=== PATIENT | female | born 2000 | race Caucasian/White ===

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

== ENCOUNTER → 2020-10-23 10:21 | Outpatient (CLI) | payer OTHER, SELFPAY ==
[2020-10-23 12:30] LABS: HCG,Quantitative 14047 mIU/ml (0-5.42)
== END ==
PROVIDERS: Visit Provider Obstetrics & Gynecology
DX: Z32.00 Encounter for pregnancy test, result unknown (principal)
CPT/HCPCS: 36415; 84702

== ENCOUNTER → 2020-10-30 15:13 | Outpatient (CLI) | payer OTHER, SELFPAY ==
--- NOTE | 2020-10-30 15:20 | US_ITS ---
PROCEDURE: US OB >= 14 WEEKS FETUS CLINICAL INDICATION: US OB Dates COMPARISON: No exams were available for comparison FINDINGS: There is a single live fetus present which is in breech presentation. Cervix is closed and measures 3 cm. The placenta is anterior and grade 1. heart body motion noted. This does not constitute a complete Ob anatomy exam. Measurements: Average ultrasound age 17weeks 5days. Gestational Age 17weeks 5days Estimated due date by ultrasound age 0704/04/2021. Estimated weight 211g BPD = 17weeks 4days OFD = HC = 17weeks 3days AC = 18weeks FL = 17weeks 6days Growth Percentile= 10Percent% Heart Rate = 160bpm Cerebellum = 18weeks 1day Humerus = 17weeks 6days HC/AC is 1.13 CI is 0.75 FL/BPD is 0.68 FL/AC is 0.21 IMPRESSION: Live IUP at 17 weeks 5 days. Estimated due date by Ultrasound is 04/04/2021 Dictated by: Braden Narvaez MD 10/31/2020 13:41 Braden Narvaez MD in [facility] 10/31/2020 13:41
== END ==
PROVIDERS: Visit Provider Obstetrics & Gynecology
DX: O26.841 Uterine size-date discrepancy, first trimester (principal)
CPT/HCPCS: 76805

== ENCOUNTER → 2021-02-08 10:07 | Outpatient (CLI) | payer OTHER, SELFPAY ==
[2021-02-08 10:38] LABS: Basophils % 0.2 % (0.1-2.0); Eosinophils # 0.1 K/mm3 (0.0-0.4); Hematocrit 31.6 % (37.0-47.0); Hemoglobin 10.2 g/dL (12.2-16.2); Lymphocytes # 2.1 K/mm3 (0.7-4.5); Lymphocytes % 21.6 % (10-50); Mean Corpuscular HGB Conc 32.4 g/dL (31.8-35.4); Mean Corpuscular Hemoglobin 25.6 pg (27.0-31.2); Mean Platelet Volume 8.7 fl (7.4-10.4); Monocytes # 0.5 K/mm3 (0.1-1.0); Monocytes % 4.9 % (1.7-9.3); Neutrophils # 7.1 K/mm3 (1.8-7.8); Neutrophils % 72.4 % (37.0-80.0); Platelet Count 288 K/mm3 (142-424); White Blood Count 9.8 K/mm3 (4.5-13.0)
[2021-02-09 08:14] LABS: HIV Screen 4th Generation wRfx Non Reactive (Non Reactive)
[2021-02-09 12:30] LABS: Hepatitis B Surface Antigen Negative (Negative); Hepatitis C Antibody <0.1 s/co ratio (0.0-0.9); Rapid Plasma Reagin Ab Titer Non Reactive (NonRea<1:1); Rubella Antibodies, IgG 1.11 index (Immune >0.99)
[2021-02-12 04:14] LABS: Neisseria gonorrhoeae, NAA Negative (Negative)
== END ==
PROVIDERS: Visit Provider Obstetrics & Gynecology
DX: Z34.90 Encounter for supervision of normal pregnancy, unspecified, unspecified trimester (principal)
CPT/HCPCS: 36415; 85025; 86592; 86703; 86762; 86850; 87340; 87380; 87491; 87591; G0432

== ENCOUNTER → 2021-02-12 13:05 | Outpatient (CLI) | payer OTHER, SELFPAY ==
--- NOTE | 2021-02-12 13:05 | US_ITS ---
PROCEDURE: US OB >= 14 WEEKS FETUS CLINICAL INDICATION: OB complete Anatomy exam COMPARISON: US US OB >= 14 WEEKS FETUS from 10/30/2020 FINDINGS: There is a single live fetus which is in cephalic presentation. Anatomic evaluation of the fetus is somewhat limited due to advanced gestational age. The placenta is anterior and grade 1. No obvious previa. The cervix is closed measures 3 cm. The SCOTTIE is normal at 12 cm. Complete survey performed and was unremarkable on the submitted images as in PACS. No discrete anomalies identified on survey imaging by technologist. Active fetus. Three-vessel cord with satisfactory umbilical cord insertion. 4- chamber heart noted. Survey of brain & ventricles Unremarkable. Face and neck survey unremarkable. Diaphragm and chest views unremarkable. Abdomen: Both kidneys noted and unremarkable. Stomach noted and satisfactory. Spine: Survey of the spine satisfactory with no anomalies identified nor imaged. Both arms and legs noted. Amniotic Fluid: Adequate. Maternal adnexa: No significant findings. Measurements: Average ultrasound age 32weeks 4days. Gestational Age 32weeks 5days Estimated due date by ultrasound age 0704/05/2021. Estimated weight 1,978g BPD = 32weeks 5days OFD = 32weeks 5days HC = 32weeks 3days AC = 32weeks 4days FL = 32weeks 3days Growth Percentile= 32Percent% Heart Rate = 153bpm Cerebellum = 32weeks 2days Humerus = HC/AC is 1.03 CI is 0.78 FL/BPD is 0.77 FL/AC is 0.22 IMPRESSION: Live IUP at 32 weeks 4 days. All parameters correlate with no obvious anomalies. Fetus is in cephalic presentation. SCOTTIE is 12 cm. Placenta is anterior and grade 1. No obvious previa or abruption Dictated by: Braden Narvaez MD 02/13/2021 09:35 Braden Nravaez MD in [facility] 02/13/2021 09:35
== END ==
PROVIDERS: PCP Obstetrics & Gynecology; Visit Provider Obstetrics & Gynecology
DX: Z34.90 Encounter for supervision of normal pregnancy, unspecified, unspecified trimester (principal)
CPT/HCPCS: 76805

== ENCOUNTER 2021-02-17 17:17 | Outpatient (CLI) | payer OTHER, SELFPAY ==
[2021-02-17 17:30] VITALS: BMI 37.8
[2021-02-17 17:58] VITALS: BMI 37.8
--- NOTE | 2021-02-17 18:15 | PC.NURSE ---
Pt's aunt has not arrived to be with her.
[2021-02-17 18:19] LABS: Amphetamine/Metha Screen,Urine Negative ng/ml (<1000); Barbiturates Screen,Urine Negative ng/ml (<200)
[2021-02-17 18:20] LABS: Benzodiazepines Screen,Urine Negative ng/ml (<200)
[2021-02-17 18:21] LABS: Cannabinoid Screen,Urine Positive ng/ml (<50); Cocaine Screen,Urine Negative ng/ml (<300)
[2021-02-17 18:22] LABS: Methadone Screen,Urine Negative ng/ml (<300); Opiate Screen,Urine Negative ng/ml (<300)
[2021-02-17 18:23] LABS: Phencyclidine Screen,Urine Negative ng/ml (<25)
--- NOTE | 2021-02-17 18:23 | PC.NURSE ---
R/T at to perform EKG
[2021-02-17 18:24] VITALS: BP 117/67; PULSE 80; RESP 18; O2SAT 98
--- NOTE | 2021-02-17 18:25 | ECG_ITS ---
APPROVED REPORT Exam: Resting ECG HR:85 bpm ECG Measurements Heart Rate 85 AXES HI 106 P -4 QRSd 78 QRS 42 QT 372 T 13 QTc 442 Conclusion Sinus rhythm with short HI Nonspecific T wave abnormality Abnormal ECG Electronically signed by : En Cohn, 02/18/2021 07:10:38
--- NOTE | 2021-02-17 18:59 | PC.NURSE ---
Triponin Level ordered and drawn r/t EKG reading from ER doctor.
[2021-02-17 19:48] LABS: Troponin I < 0.01 ng/ml (0.00-0.034)
== END 2021-02-17 20:18 | disposition home or self-care (01) ==
LOC: OBOUT 17:19 → OB 17:21
PROVIDERS: Obstetrics & Gynecology; PCP Obstetrics & Gynecology; Visit Provider Obstetrics & Gynecology
DX: O26.893 Other specified pregnancy related conditions, third trimester (principal); Z3A.32 32 weeks gestation of pregnancy; R06.02 Shortness of breath
CPT/HCPCS: 59025; 80305; 84484; 93005; G0463

== ENCOUNTER → 2021-03-05 16:36 | Outpatient (CLI) | payer OTHER, SELFPAY | PROVIDERS: Visit Provider Obstetrics & Gynecology | DX: Z34.90 Encounter for supervision of normal pregnancy, unspecified, unspecified trimester (principal) | CPT/HCPCS: 86403 ==

== ENCOUNTER → 2021-03-26 10:57 | Outpatient (CLI) | payer OTHER, SELFPAY | PROVIDERS: Visit Provider Obstetrics & Gynecology | DX: Z11.52 Encounter for screening for COVID-19 (principal) | CPT/HCPCS: U0003 ==

== ENCOUNTER 2021-03-27 17:06 | Inpatient (IN) | payer OTHER, SELFPAY ==
[2021-03-27 17:41] VITALS: BMI 37.2
[2021-03-27 17:48] VITALS: BP 126/71; PULSE 111; RESP 16; TEMP 36.9; BMI 37.2
[2021-03-27 18:36] LABS: Microscopic, Urine URINE MICROSCOPIC (MICROSCOPIC)
[2021-03-27 18:40] LABS: Basophils % 0.2 % (0.1-2.0); Eosinophils # 0.1 K/mm3 (0.0-0.4); Eosinophils % 1.2 % (0.1-12.0); Hematocrit 32.2 % (37.0-47.0); Hemoglobin 10.6 g/dL (12.2-16.2); Lymphocytes # 2.5 K/mm3 (0.7-4.5); Lymphocytes % 25.7 % (10-50); Mean Corpuscular HGB Conc 32.8 g/dL (31.8-35.4); Mean Corpuscular Hemoglobin 24.6 pg (27.0-31.2); Mean Corpuscular Volume 75.1 fl (81-99); Monocytes # 0.6 K/mm3 (0.1-1.0); Monocytes % 6.6 % (1.7-9.3); Neutrophils # 6.4 K/mm3 (1.8-7.8); Neutrophils % 66.3 % (37.0-80.0); Platelet Count 291 K/mm3 (142-424); Red Blood Count 4.28 M/mm3 (4.20-5.40); Red Cell Distribution Width 15.9 % (11.5-17.5); White Blood Count 9.7 K/mm3 (4.8-10.8)
[2021-03-27 18:42] LABS: Chloride 105 mmol/L (98-107); Potassium 4.1 mmoL/L (3.5-5.1); Sodium 134 mmol/L (136-145)
[2021-03-27 18:45] LABS: Blood Urea Nitrogen 6 mg/dl (7-17); Calcium 9.1 mg/dl (8.4-10.2); Carbon Dioxide 22 mmol/L (22.0-30.0); Creatinine Clearance Estimated 251 mL/min (50-200); Estimated Glomerular Filt Rate 156 ml/min (>60); GFR (African American) 188 ML/MIN (>60); Glucose 85 mg/dl (74-100)
[2021-03-27 18:57] LABS: Appearance,Urine SL CLOUDY (Clear); Blood, Urine Negative (Negative); Color,Urine DK YELLOW (Yellow); Glucose,Urine (UA) Negative (Negative); Ketones,Urine Negative (Negative); Leukocyte Esterase,Urine Negative (Negative); Nitrate,Urine Negative (Negative); Protein,Urine TRACE (Negative); Specific Gravity, Urine >= 1.030 (1.005-1.030)
[2021-03-27 18:59] LABS: Bilirubin,Urine 1+ (Negative)
[2021-03-27 19:10] LABS: Activated Partial Thrombo Time 21.7 seconds (22.8-30.6); INR 0.93 (0.9-1.1)
[2021-03-27 19:10] LABS: Amphetamine/Metha Screen,Urine Negative ng/ml (<1000); Barbiturates Screen,Urine Negative ng/ml (<200)
[2021-03-27 19:11] LABS: Benzodiazepines Screen,Urine Negative ng/ml (<200)
[2021-03-27 19:12] LABS: Cannabinoid Screen,Urine Negative ng/ml (<50); Cocaine Screen,Urine Negative ng/ml (<300)
[2021-03-27 19:14] LABS: Phencyclidine Screen,Urine Negative ng/ml (<25)
[2021-03-27 19:17] LABS: Methadone Screen,Urine Negative ng/ml (<300); Opiate Screen,Urine Negative ng/ml (<300)
[2021-03-27 19:31] LABS: WBC,Urine Occasional #/hpf (0-3)
[2021-03-28 06:56] LABS: Basophils % 0.3 % (0.1-2.0); Eosinophils # 0.1 K/mm3 (0.0-0.4); Hematocrit 30.6 % (37.0-47.0); Mean Platelet Volume 8.8 fl (7.4-10.4); Neutrophils # 6.1 K/mm3 (1.8-7.8); White Blood Count 9.6 K/mm3 (4.8-10.8)
[2021-03-28 07:02] LABS: Eosinophils % 1.4 % (0.1-12.0); Hemoglobin 10.4 g/dL (12.2-16.2); Lymphocytes # 2.9 K/mm3 (0.7-4.5); Lymphocytes % 29.7 % (10-50); Mean Corpuscular HGB Conc 33.8 g/dL (31.8-35.4); Mean Corpuscular Hemoglobin 25.4 pg (27.0-31.2); Monocytes # 0.6 K/mm3 (0.1-1.0); Monocytes % 5.7 % (1.7-9.3); Platelet Count 234 K/mm3 (142-424); Red Blood Count 4.09 M/mm3 (4.20-5.40)
[2021-03-28 07:19] LABS: Activated Partial Thrombo Time 23.1 seconds (22.8-30.6); INR 0.95 (0.9-1.1); Prothrombin Time 11.2 seconds (10.1-12.5)
[2021-03-28 09:54] LABS: Anion Gap 11.1 mEq/L (5-15)
--- NOTE | 2021-03-28 10:48 | HMH.ANESCL ---
[facility] Anesthesia Checklist - Structural Data Admitted From: Inpatient Planned Operative Procedure/s: labor epidural Consent for Planned Operative Procedure(s) Verified: Yes - Additional verifications Anesthesia Reactions: No - Airway Assessment C-Spine Mobility Assessed: Yes TMJ Mobility Assessed: Yes Dentition: Good Dentition - Neurological Assessment Level of Consciousness: Awake, Alert, Appropriate - Anesthesia Plan Anesthesia Risk discussed: Yes Anesthesia Plan: Verified ASA Class: II Anesthesia Type: Epidural [facility] History I have reviewed the patient's past medical history: Yes Medical History: Reports:: Deep Vein Thrombosis, Depression, Pulmonary Embolism Denies:: Diabetes Mellitus Type 1, Diabetes Mellitus Type 2 *Have you ever received a pneumonia vaccine?: No *Have you received a flu vaccine this season?: No Anesthesia experience/problems:: none Laterality Cases: Bilateral: Myringotomy (Ear Tubes) Other Surgeries: Yes: , Other Amputation: No Fractures: No - *Social History Smoking Status: Former smoker Alcohol Intake: never Alcohol Intake Frequency:: other Substance Use Type: marijuana, former substance user *Occupational Status:: employed *Travel in the last 8 weeks: None - Psychiatric History Pschychiatric History:: Reports:: Depression Family Hx:: Hypertension, Cancer, Diabetes, Stroke Para: 2
--- NOTE | 2021-03-28 12:04 | HMH.HP ---
*Admission Date: 03/28/21 *Chief complaint: scheduled induction of labor *History of present illness: 21 yo @ 39 weeks for IOL complicated by late presentation for care at 32 weeks She has a history of DVT after first G1 delivery (C section) which progressed to PE She was not anticoagulated during G2 or and delivered by successful She was started on heparin 08498 units BID at 32 weeks with this when she initially presented for care heparin was discontinued last evening in preparation for delivery [facility] History Medical History: Reports:: Deep Vein Thrombosis, Depression, Pulmonary Embolism Denies:: Diabetes Mellitus Type 1, Diabetes Mellitus Type 2 *Have you ever received a pneumonia vaccine?: No *Have you received a flu vaccine this season?: No Anesthesia experience/problems:: none Laterality Cases: Bilateral: Myringotomy (Ear Tubes) Other Surgeries: Yes: , Other Amputation: No Fractures: No - *Social History Smoking Status: Former smoker Alcohol Intake: never Alcohol Intake Frequency:: other Substance Use Type: marijuana, former substance user *Occupational Status:: employed *Travel in the last 8 weeks: None - Psychiatric History Pschychiatric History:: Reports:: Depression Family Hx:: Hypertension, Cancer, Diabetes, Stroke : 3 Para: 2 Review of Systems - Review of Systems Review of systems:: pertinent systems reviewed and negative unless documented below Meds Home Medications Medication Instructions Recorded Confirmed Type heparin (porcine) 10,000 unit/mL 10,000 unit SQ Q12H #100 ml 02/08/21 03/27/21 Rx injection solution Vit/Iron Fum/Folic AC 1 tab PO DAILY 03/27/21 03/27/21 History [ Tablet] Allergies Allergy/AdvReac Type Severity Reaction Status Date / Time No Known Allergies Allergy Verified 03/26/21 09:37 Exam Vital signs and Labs for Last 24 Hours: Temp Pulse Resp BP 98.4 F 111 H 16 126/71 03/27/21 17:48 03/27/21 17:48 03/27/21 17:48 03/27/21 17:48 Laboratory Results - last 24 hr 03/27/21 18:11: WBC 9.7, RBC 4.28, Hgb 10.6 L, Hct 32.2 L, MCV 75.1 L, MCH 24.6 L, MCHC 32.8, RDW 15.9, Plt Count 291, MPV 9.0, Neut % (Auto) 66.3, Lymph % (Auto) 25.7, Mccreary % (Auto) 6.6, Eos % (Auto) 1.2, Baso % (Auto) 0.2, Neut # (Auto) 6.4, Lymph # (Auto) 2.5, Mccreary # (Auto) 0.6, Eos # (Auto) 0.1, Baso # (Auto) 0.0 03/27/21 18:11: PT 11.0, INR 0.93, APTT 21.7 L 03/27/21 18:11: Sodium 134 L, Potassium 4.1, Chloride 105, Carbon Dioxide 22, Anion Gap 11.1, BUN 6 L, Creatinine 0.50 L, Estimated Creat Clear 251, Estimated GFR 156, Est GFR ( Amer) 188, Glucose 85, Calcium 9.1 03/27/21 18:11: Blood Type A Positive, Antibody Screen Negative 03/27/21 18:32: Urine Color Dk yellow, Urine Appearance Sl cloudy, Urine pH 6.0, Ur Specific [place] >= 1.030, Urine Protein Trace, Urine Glucose (UA) Negative, Urine Ketones Negative, Urine Blood Negative, Urine Nitrate Negative, Urine Bilirubin 1+ A, Urine Urobilinogen 1.0, Ur Leukocyte Esterase Negative, Urine RBC None, Urine WBC Occasional, Ur Squamous Epith Cells 3-5, Urine Bacteria None 03/27/21 18:32: Urine Opiates Screen Negative, Urine Methadone Screen Negative, Ur Barbituates Screen Negative, Ur Phencyclidine Scrn Negative, Ur Amphetamines Screen Negative, U Benzodiazepines Scrn Negative, Urine Cocaine Screen Negative, U Marijuana (THC) Screen Negative 03/28/21 06:25: PT 11.2, INR 0.95, APTT 23.1 03/28/21 06:25: WBC 9.6, RBC 4.09 L, Hgb 10.4 L, Hct 30.6 L, MCV 75.0 L, MCH 25.4 L, MCHC 33.8, RDW 16.0, Plt Count 234, MPV 8.8, Neut % (Auto) 63.0, Lymph % (Auto) 29.7, Mccreary % (Auto) 5.7, Eos % (Auto) 1.4, Baso % (Auto) 0.3, Neut # (Auto) 6.1, Lymph # (Auto) 2.9, Mccreary # (Auto) 0.6, Eos # (Auto) 0.1, Baso # (Auto) 0.0 I & O for Last 24 hours: Intake & Output 03/26/21 03/27/21 03/28/21 03/29/21 11:59 11:59 11:59 11:59 Weight 197 lb - Con
--- NOTE | 2021-03-28 16:55 | HMH.DN ---
- Delivery Note Delivery Date:: 03/28/21 Delivery Time:: 14:05 Anesthesia Type: Epidural Was labor medically induced?: Yes Induction method: per pitocin protocol Gestational age (weeks): 39 delivered prior to 39 weeks?: No at 1 minute: 8 at 5 minutes: 9 Delivery Procedure:: Spontaneous vaginal delivery of liveborn male over intact perineum. Delivery uncomplicated Nuchal cord x 1 reduced on perineum; no shoulder dystocia with delivery placed in XIANG with mother immediately after umbilical cord clamped/cut, with standard nursing assessment performed Infant Apgars: Placenta spontaneously expressed and examined; noted to be complete/intact. Vulva, vagina, and cervix inspected; no lacerations present EBL: 300 cc All sponge/needle/instrument counts correct at conclusion of procedure Disposition: Mom/baby stable to recovery in LDRP Placental Delivery Description: Spontaneous
[2021-03-28 19:45] VITALS: BP 119/60; PULSE 90; RESP 18; TEMP 36.7; O2SAT 99
[2021-03-29 04:37] VITALS: BP 125/65; PULSE 90; RESP 18; TEMP 36.9
[2021-03-29 07:00] LABS: Hematocrit 30.7 % (37.0-47.0); Hemoglobin 10.1 g/dL (12.2-16.2)
[2021-03-29 08:04] VITALS: BP 112/89; PULSE 82; RESP 16; TEMP 36.6; O2SAT 100
--- NOTE | 2021-03-29 09:58 | SW/DCPLANNER ---
Addendum entered by Virgie Mcallister 04/01/21 13:08: Lata has called back stating that Vanessa Cannon (paternal Aunt) will be caring for the child and will be ready for discharge today. Lata is aware that I will need an updated Care Plan along with a photo ID for Vanessa when she comes to pick up from hospital today. Addendum entered by Virgie Mcallister 04/01/21 11:49: I spoke with Lay Midwife: Lata [phone] regarding plan for this infant. Lata stated that a family meeting/Lay Midwife meeting is scheduled for tomorrow morning at 11AM. Lata has stated that this is the earliest time meeting could take place. will not discharge till tomorrow after meeting. I have relayed information to patients nurse (Chio Bolton). Addendum entered by Virgie Mcallister 03/29/21 13:13: Lata has returned my phone call stating that an additional Central Intake report has been made. Additional report did meet criteria and she is currently on her way to evaluate patient at [facility]. Lata is aware that patient is medically stable for transportation. Addendum entered by Virgie Mcallister 03/29/21 12:50: This case did NOT meet criteria by Central Intake: I have attempted to contact Assembly Line Upholsterer (Lata) regarding this case no answer VM left. Original Note: I received a referral for this patient regarding: late care, positive for THC and does not have custody of other children. Patient did not have any visits until 32 weeks. Patient stated late care was due to not knowing she was and transportation issues. Patient did test positive for THC on 02/17/21 and admitted to using THC due to stress. Patient does have two other children that she currently does not have custody of at this time. I visited with this patient and infants father (Hank Mathis 07/04/99) this morning. Infant male (Kingsley Mathis) was born on [birth year]. Patient, her parents (Keanu and Corrine Monique) reside at [address] [place] [address]. Infants contact number is [phone]. Patient stated that she does have two other children: Marcelo Monique 06/10/18: mother does not have custody and Samuel Armas 08/29/19: mother is working towards gaining custody back. Patient currently has an open case with Lata Kirk. Patient is established with WIC and stated that she does have: clothing, crib, carseat, diapers and formula. Nursing staff (Abigail Allen) has reported that patient and father are appropriate with infant. I have reported this case to Central Intake: ID#[id number]. Patient and are planned to discharge tomorrow pending no setbacks.
[2021-03-29 12:27] VITALS: BP 113/70; PULSE 82; RESP 18; TEMP 36.4; O2SAT 97
--- NOTE | 2021-03-29 12:27 | HMH.ACPN2 ---
Internal Medicine - PN: Subj *Date: 03/29/21 *Time: 12:27 Interval history: PPD #1 vaginal delivery () no unusual complaints lochia is light and cramping mild tolerating regular diet ambulating and voiding without difficulty lovenox resumed this morning care management involved due to custody issues with previous 2 children Exam Vital signs and Labs for Last 24 Hours: Temp Pulse Resp BP Pulse Ox 97.8 F 82 16 112/89 100 03/29/21 08:04 03/29/21 08:04 03/29/21 08:04 03/29/21 08:04 03/29/21 08:04 Laboratory Results - last 24 hr 03/29/21 06:50: Hgb 10.1 L, Hct 30.7 L I & O for Last 24 hours: Intake & Output 03/27/21 03/28/21 03/29/21 03/30/21 11:59 11:59 11:59 11:59 Weight 197 lb Narrative: CONSTITUTIONAL: no acute distress HEENT: mucous membranes moist PULMONARY: breathing unlabored without audible wheezes CV: no tachycardia or visible JVD; normal LE peripheral pulses ABD: soft, NT/ND, no guarding : fundus firm at/below umbilicus SKIN: no visible rash or lesions EXT: 1+ edema LEs, symmetrical NEURO: alert/oriented, no altered mental status PSYCH: appropriate mood and demeanor Assessment and Plan (1) 39 weeks gestation of Status: Acute Category: Medical Code(s): Z3A.39 - 39 weeks gestation of (2) Late care Status: Acute Category: Medical Code(s): O09.30 - Supervision of with insufficient care, unspecified trimester (3) Anemia complicating Status: Acute Category: Medical Code(s): O99.019 - Anemia complicating , unspecified trimester (4) Anxiety and depression Status: Acute Category: Medical Code(s): F41.9 - Anxiety disorder, unspecified; F32.9 - Major depressive disorder, single episode, unspecified (5) History of DVT of lower extremity Status: Acute Category: Medical Code(s): Z86.718 - Personal history of other venous thrombosis and embolism (6) Previous section Status: Acute Category: Surgical Code(s): Z98.891 - History of uterine scar from previous surgery (7) History of Status: Acute Category: Medical Code(s): Z98.891 - History of uterine scar from previous surgery (8) Patient desires vaginal after section () Status: Acute Category: Surgical Code(s): O34.219 - Maternal care for unspecified type scar from previous delivery (9) History of pulmonary embolism Status: Acute Category: Medical Code(s): Z86.711 - Personal history of pulmonary embolism (10) Positive urine drug screen Problem details: THC Status: Acute Category: Medical Code(s): R82.5 - Elevated urine levels of drugs, medicaments and biological substances - Assessment and plan all Dx Assessment and Plan for all problems:: Routine care Continue Lovenox 8 weeks Anticipate discharge home tomorrow
[2021-03-29 16:40] VITALS: BP 118/77; PULSE 84; RESP 20; TEMP 36.7; O2SAT 97
[2021-03-29 20:00] VITALS: BP 111/66; PULSE 74; RESP 18; TEMP 36.7; O2SAT 95
[2021-03-30 04:11] VITALS: BP 106/63; PULSE 83; RESP 17; TEMP 36.6; O2SAT 99
[2021-03-30 09:04] VITALS: BP 110/60; PULSE 92; RESP 16; TEMP 36.8; O2SAT 100
--- NOTE | 2021-03-30 09:36 | P.PN_ITS ---
Internal Medicine - PN: Subj *Date: 03/30/21 *Time: 09:36 ( day #2..afebrile. VS OK. u/o good. fundus U-2. lochia rubra. Hgb 10.1gms..stable..OK for discharge.) Exam Vital signs and Labs for Last 24 Hours: Temp Pulse Resp BP Pulse Ox 97.8 F 83 17 106/63 L 99 03/30/21 04:11 03/30/21 04:11 03/30/21 04:11 03/30/21 04:11 03/30/21 04:11 I & O for Last 24 hours: Intake & Output 03/27/21 03/28/21 03/29/21 03/30/21 11:59 11:59 11:59 11:59 Weight 197 lb Assessment and Plan (1) 39 weeks gestation of Status: Acute Category: Medical Code(s): Z3A.39 - 39 weeks gestation of (2) Late care Status: Acute Category: Medical Code(s): O09.30 - Supervision of with insufficient care, unspecified trimester (3) Anemia complicating Status: Acute Category: Medical Code(s): O99.019 - Anemia complicating , unspecified trimester (4) Anxiety and depression Status: Acute Category: Medical Code(s): F41.9 - Anxiety disorder, unspecifi ed; F32.9 - Major depressive disorder, single episode, unspecified (5) History of DVT of lower extremity Status: Acute Category: Medical Code(s): Z86.718 - Personal history of other venous thrombosis and embolism (6) Previous section Status: Acute Category: Surgical Code(s): Z98.891 - History of uterine scar from previous surgery (7) History of Status: Acute Category: Medical Code(s): Z98.891 - History of uterine scar from previous surgery (8) Patient desires vaginal after section () Status: Acute Category: Surgical Code(s): O34.219 - Maternal care for unspecified type scar from previous delivery (9) History of pulmonary embolism Status: Acute Category: Medical Code(s): Z86.711 - Personal history of pulmonary embolism (10) Positive urine drug screen Problem details: THC Status: Acute Category: Medical Code(s): R82.5 - Elevated urine levels of drugs, medicaments and biological substances
--- NOTE | 2021-03-30 09:42 | HMH.DCSUM ---
General - General Admission date:: 03/27/21 Discharge date: 03/30/21 (This 21-year-old 3, now para 3, Ab0 white female was admitted at term for induction, having had a previous vaginal delivery had a previous section. 1405 on 03/28/2021 she delivered an /9, 6 pound 15 ounce, 19.25 inch male infant, who is been circumcised, is bottlefeeding, and is done well. He had been on Lovenox because of a history of DVT in a previous , but has had no problems during this , labor or delivery. , the patient has done well. She is eating and ambulating and had movement. Her lochia is normal. Her uterine fundus has involuted well. Lacerations. Her is A+. Her rubella titer is immune. Baby is on a social services director hold, but the patient is discharged on day #2 on Lovenox and on and vitamins and on Tylenol and Motrin, as needed for pain. She is given appropriate instructions as to diet and exercise, and she is to return to Dr. Fritz's office in 3 weeks for follow-up.) HPI HPI: 21 yo @ 39 weeks for IOL complicated by late presentation for care at 32 weeks She has a history of DVT after first G1 delivery (C section) which progressed to PE She was not anticoagulated during G2 or and delivered by successful She was started on heparin 37419 units BID at 32 weeks with this when she initially presented for care heparin was discontinued last evening in preparation for delivery Hospital Course Rhogam Administration: Not Indicated Objective Vital signs: Temp Pulse Resp BP Pulse Ox 97.8 F 83 17 106/63 L 99 03/30/21 04:11 03/30/21 04:11 03/30/21 04:11 03/30/21 04:11 03/30/21 04:11 DS: Diagnosis - Discharge Diagnosis (1) 39 weeks gestation of Status: Acute (2) Late care Status: Acute (3) Anemia complicating Status: Acute (4) Anxiety and depression Status: Acute (5) History of DVT of lower extremity Status: Acute (6) Previous section Status: Acute (7) History of Status: Acute (8) Patient desires vaginal after section () Status: Acute (9) History of pulmonary embolism Status: Acute (10) Positive urine drug screen Status: Acute Problem details: THC Discharge Plan - Patient Discharge Instructions DIET: advance to your usual diet Additional Instructions: No heavy lifting/strenuous activity. Nothing in the vagina for 6 weeks. Follow up with MD as scheduled. Patient Instructions: Pulmonary Embolism, Depression, Hemorrhage, DI for Labor and Delivery, Vaginal , DI for Pre-eclampsia, DI for Vaginal After Section (), [facility] Post Discharge Instructions, Preventing the Spread of Coronavirus Discharge Instructions - Follow up Plan Follow up with: Alla Fritz MD [Primary Care Provider] - Disposition: Home, Self-Care Condition at discharge:: Stable Home Medications: Home Medications Medication Instructions Recorded Confirmed Type heparin (porcine) 10,000 unit/mL 10,000 unit SQ Q12H #100 ml 02/08/21 03/27/21 Rx injection solution Vit/Iron Fum/Folic AC 1 tab PO DAILY 03/27/21 03/27/21 History [ Tablet] Enoxaparin Sodium [Lovenox 40 mg SQ DAILY #30 syringe 03/29/21 Rx 40mg/0.4mL syringe] Prescriptions/Medication Reconciliation: New Enoxaparin Sodium [Lovenox 40mg/0.4mL syringe] 40 mg SQ DAILY #30 syringe Continued Vit/Iron Fum/Folic AC [ Tablet] 1 tab PO DAILY Discontinued heparin (porcine) 10,000 unit/mL injection solution 10,000 unit SQ Q12H #100 ml - Problem Reconciliation Problems Reviewed?: Yes
== END 2021-03-30 12:25 | disposition home or self-care (01) | DRG 807 ==
PROVIDERS: Admitting Provider Obstetrics & Gynecology; PCP Obstetrics & Gynecology; Visit Provider Obstetrics & Gynecology
DX: O99.02 Anemia complicating childbirth (principal); Z37.0 Single live birth; Z86.718 Personal history of other venous thrombosis and embolism; Z86.711 Personal history of pulmonary embolism; O34.219 Maternal care for unspecified type scar from previous cesarean delivery; Z3A.39 39 weeks gestation of pregnancy; O69.81X0 Labor and delivery complicated by cord around neck, without compression, not applicable or unspecified; Z87.891 Personal history of nicotine dependence
CPT/HCPCS: 59409; 36415; 59025; 80048; 80305; 81001; 85014; 85018; 85025; 85610; 85730; 86850; 94761; C1758; G0283; U0003